=== PATIENT | male | born 1970 | race Caucasian/White ===

== ENCOUNTER → 2017-01-27 | Outpatient (CLI) | payer MEDICARE ==
[2017-01-27 06:52] LABS: MEAN CORPUSCULAR HEMOGLOBIN 30.5 pg (27.0-33.0); MEAN CORPUSCULAR HGB CONC 34.9 g/dl (32.0-36.5); MEAN CORPUSCULAR VOLUME 87.4 fl (80.0-96.0); RED CELL DISTRIBUTION WIDTH 11.8 % (11.5-14.5); WHITE BLOOD COUNT 6.9 K/mm3 (4.0-10.0)
[2017-01-27 07:12] LABS: ALBUMIN 3.6 GM/DL (3.2-5.2); ALBUMIN/GLOBULIN RATIO 1.09 (1.00-1.93); ALKALINE PHOSPHATASE 70 U/L (45-117); ALT/SGPT 66 U/L (12-78); ANION GAP 7 MEQ/L (8-16); AST/SGOT 31 U/L (15-37); BILIRUBIN,TOTAL 0.4 MG/DL (0.2-1.0); BLOOD UREA NITROGEN 12 MG/DL (7-18); CALCIUM LEVEL 8.1 MG/DL (8.5-10.1); CARBON DIOXIDE LEVEL 31 MEQ/L (21-32); CHLORIDE LEVEL 104 MEQ/L (98-107); CHOLESTEROL LEVEL 237 MG/DL (<200); CREATININE FOR GFR 1.06 MG/DL (0.70-1.30); GLOMERULAR FILTRATION RATE > 60.0 (>60); GLUCOSE, FASTING 123 MG/DL (70-105); SODIUM LEVEL 142 MEQ/L (136-145); TOTAL PROTEIN 6.9 GM/DL (6.4-8.2); TRIGLYCERIDES LEVEL 130 MG/DL (<150)
== END ==
LOC: M LAB 06:11
PROVIDERS: ATTEND Family Medicine
DX: R53.83 Other fatigue (principal); D64.9 Anemia, unspecified; E03.9 Hypothyroidism, unspecified

== ENCOUNTER → 2019-12-23 | Outpatient (CLI) | payer OTHER ==
--- NOTE | 2019-12-23 06:51 | ECGEPIP ---
[facility] Test Date: 2019-12-23 Pat Name: TERRIE WARE Department: Room: - Gender: Male [employer] Technician: DARRYL : 1970 Requested By: Je Anand Order Number: [id number] Reading MD: Ciara Dover Measurements Intervals [place] Rate: 70 P: 28 TX: 134 QRS: 32 QRSD: 89 T: 32 QT: 359 QTc: 389 Interpretive Statements SINUS RHYTHM SMALL U WAVES NEW C/W 04/20/15 Electronically Signed on 12-23-2019 6:51:40 EST by Ciara Dover
[2019-12-23 07:14] LABS: HEMATOCRIT 43.9 % (42.0-52.0); HEMOGLOBIN 14.8 g/dl (13.5-17.5); MEAN CORPUSCULAR HEMOGLOBIN 30.8 pg (27.0-33.0); MEAN CORPUSCULAR HGB CONC 33.7 g/dl (32.0-36.5); MEAN CORPUSCULAR VOLUME 91.5 fl (80.0-96.0); PLATELET COUNT, AUTOMATED 183 10^3/uL (150-450); WHITE BLOOD COUNT 6.5 10^3/uL (4.0-10.0)
[2019-12-23 07:48] LABS: ALBUMIN 3.9 GM/DL (3.2-5.2); ALT/SGPT 57 U/L (12-78); BILIRUBIN,TOTAL 0.5 MG/DL (0.2-1.0); BLOOD UREA NITROGEN 14 MG/DL (7-18); CALCIUM LEVEL 8.6 MG/DL (8.5-10.1); CARBON DIOXIDE LEVEL 32 MEQ/L (21-32); CHLORIDE LEVEL 101 MEQ/L (98-107); CHOLESTEROL LEVEL 252 MG/DL (<200); CREATININE FOR GFR 0.97 MG/DL (0.70-1.30); GLOMERULAR FILTRATION RATE > 60.0 (>60); GLUCOSE, FASTING 98 MG/DL (70-100); HDL CHOLESTEROL 63 MG/DL (>40); LDL CHOLESTEROL 165 MG/DL (<100); NON-HDL-C 189 MG/DL; POTASSIUM SERUM 3.7 MEQ/L (3.5-5.1); SODIUM LEVEL 139 MEQ/L (136-145); TOTAL PROTEIN 7.3 GM/DL (6.4-8.2); TRIGLYCERIDES LEVEL 119 MG/DL (<150)
--- NOTE | 2019-12-23 08:23 | REP ---
Clinical: Hypertension and fatigue . Comparison: 04/21/2015 . Technique: PA and lateral. Findings: The mediastinum and cardiac silhouette are normal. The lung infante are clear and without acute consolidation, effusion, or pneumothorax. Stable chronic changes noted. The skeletal structures are intact and normal. Impression: 1. No acute cardiopulmonary process. Electronically Signed by Aroldo Laughlin MD 12/23/2019 08:14 A
[2019-12-23 10:49] LABS: HEMOGLOBIN A1c 5.3 %
[2019-12-23 12:33] LABS: TOTAL 25(OH) VITAMIN D 29.5 NG/ML (30.0-100.0)
[2019-12-23 12:34] LABS: TESTOSTERONE 364 NG/DL (241-827)
== END ==
LOC: M LAB 06:15
PROVIDERS: ATTEND Family Medicine
DX: I10 Essential (primary) hypertension (principal); R53.83 Other fatigue; E03.9 Hypothyroidism, unspecified

== ENCOUNTER → 2021-09-07 | Outpatient (CLI) | payer OTHER ==
[2021-09-07 08:30] LABS: HEMATOCRIT 42.5 % (42.0-52.0); HEMOGLOBIN 14.7 g/dl (13.5-17.5); MEAN CORPUSCULAR HGB CONC 34.6 g/dl (32.0-36.5); MEAN CORPUSCULAR VOLUME 89.7 fl (80.0-96.0); PLATELET COUNT, AUTOMATED 220 10^3/uL (150-450); RED BLOOD COUNT 4.74 10^6/uL (4.30-6.10); WHITE BLOOD COUNT 4.9 10^3/uL (4.0-10.0)
[2021-09-07 09:02] LABS: ALBUMIN 3.6 GM/DL (3.2-5.2); ALT/SGPT 83 U/L (12-78); BILIRUBIN,TOTAL 0.4 MG/DL (0.2-1.0); BLOOD UREA NITROGEN 7 MG/DL (7-18); CALCIUM LEVEL 8.8 MG/DL (8.5-10.1); CARBON DIOXIDE LEVEL 29 MEQ/L (21-32); CHLORIDE LEVEL 110 MEQ/L (98-107); CHOLESTEROL LEVEL 246 MG/DL (<200); CHOLESTEROL RISK RATIO 4.823 (<5); CREATININE FOR GFR 0.88 MG/DL (0.70-1.30); GLOMERULAR FILTRATION RATE > 60.0 (>56); GLUCOSE, FASTING 109 MG/DL (70-100); HDL CHOLESTEROL 51 MG/DL (>40); LDL CHOLESTEROL 151 MG/DL (<100); NON-HDL-C 195 MG/DL; POTASSIUM SERUM 4.2 MEQ/L (3.5-5.1); PROSTATIC SPECIFIC AG MONITOR 0.88 NG/ML (< 4.00); SODIUM LEVEL 144 MEQ/L (136-145); TRIGLYCERIDES LEVEL 219 MG/DL (<150)
[2021-09-07 09:35] LABS: HEMOGLOBIN A1c 5.2 %
--- NOTE | 2021-09-07 11:31 | REP ---
INDICATION: HTN,FATIGUE,OA,DDD,SCIATICA. COMPARISON: PA and lateral chest, 12/23/2019. TECHNIQUE: Upright PA and lateral chest images were obtained. FINDINGS: The lungs are clear. The heart borders mediastinum and pulmonary vascular pattern normal. The upper abdominal bowel gas pattern is normal. There are no bony abnormalities of the chest. IMPRESSION: No evidence of acute cardiopulmonary pathology. <Electronically signed by Matteo Cleveland > 09/07/21 [id number]
--- NOTE | 2021-09-07 11:48 | REP ---
INDICATION: HTN,FATIGUE,OA,DDD,SCIATICA. COMPARISON: None. TECHNIQUE: Eight images of the cervical spine, including flexion and extension lateral views were obtained. FINDINGS: The intervertebral disc spaces of the cervical spine are preserved. There is no evidence of spondylolisthesis. There is no instability with flexion extension. The facet joints are unremarkable. There are no compression fractures. The perivertebral soft tissues are unremarkable. IMPRESSION: 1. No evidence of significant degenerative disc disease. 2. No evidence of instability with flexion and extension. <Electronically signed by Matteo Cleveland > 09/07/21 [id number]
--- NOTE | 2021-09-07 11:49 | REP ---
INDICATION: HTN,FATIGUE,OA,DDD,SCIATICA. COMPARISON: None. TECHNIQUE: Three views of the right shoulder were obtained. FINDINGS: No evidence of fracture or dislocation. The acromioclavicular and glenohumeral joints are unremarkable. The visualized right lung is normal. The periarticular soft tissues are normal. IMPRESSION: Normal right shoulder. <Electronically signed by Matteo Cleveland > 09/07/21 [id number]
--- NOTE | 2021-09-07 11:51 | REP ---
INDICATION: HTN,FATIGUE,OA,DDD,SCIATICA. COMPARISON: None. TECHNIQUE: Five views lumbosacral spine. FINDINGS: There is no compression fracture or malalignment. There is normal lumbar lordosis. There is mild spurring of L5 and S1. There is mild disc space narrowing at L4-5 and L5-S1. Posterior elements are intact. There is mild sclerosis at the sacroiliac joints bilaterally. IMPRESSION: Mild degenerative changes. No fracture or dislocation. <Electronically signed by Ranjith Jay > 09/07/21 [id number]
--- NOTE | 2021-09-07 11:52 | REP ---
INDICATION: HTN,FATIGUE,OA,DDD,SCIATICA. COMPARISON: None. TECHNIQUE: Frontal and frogleg lateral views of the left hip were obtained. FINDINGS: There is no evidence of fracture or dislocation. There is no significant arthropathy. The periarticular soft tissues are unremarkable. IMPRESSION: No significant abnormality. <Electronically signed by Matteo Cleveland > 09/07/21 [id number]
[2021-09-07 12:00] LABS: TOTAL 25(OH) VITAMIN D 19.1 NG/ML (30.0-100.0)
[2021-09-07 12:01] LABS: TESTOSTERONE 294 NG/DL (241-827)
--- NOTE | 2021-09-08 13:28 | ECGEPIP ---
[facility] Test Date: 2021-09-07 Pat Name: TERRIE WARE Department: Room: - Gender: Male Emergency Physician: santana : 1970 Requested By: Je Anand Order Number: [id number] Reading MD: Kaushal Guerra Measurements Intervals [place] Rate: 83 P: 12 VT: 128 QRS: 19 QRSD: 72 T: 28 QT: 352 QTc: 413 Interpretive Statements Normal sinus rhythm Compared to prior tracings(2) in the system. No remarkable changes Electronically Signed on 09-08-2021 13:28:22 EDT by Kaushal Guerra
== END ==
LOC: M LAB 07:51
PROVIDERS: ATTEND Family Medicine
DX: I10 Essential (primary) hypertension (principal); R53.83 Other fatigue; M50.30 Other cervical disc degeneration, unspecified cervical region; M51.36 Other intervertebral disc degeneration, lumbar region

== ENCOUNTER → 2022-02-15 | Outpatient (CLI) | payer BC, OTHER | LOC: M PLAIMG 06:50 | PROVIDERS: ATTEND Physician Assistant | DX: M51.16 Intervertebral disc disorders with radiculopathy, lumbar region (principal); M48.061 Spinal stenosis, lumbar region without neurogenic claudication ==

== ENCOUNTER → 2022-06-14 | Outpatient (REF) | payer BC | LOC: M LAB REF 20:59 | PROVIDERS: ATTEND Physician Assistant Medical | DX: L02.419 Cutaneous abscess of limb, unspecified (principal) ==